=== PATIENT | female | born 1975 ===

== ENCOUNTER → 2021-01-29 | Outpatient (CLI) | payer BC ==
[2021-01-29 09:07] LABS: CHLORIDE 107 mmol/L (98-107); POTASSIUM 4.5 mmol/L (3.5-5.1); SODIUM 140 mmol/L (136-145)
[2021-01-29 09:22] LABS: ALBUMIN 3.9 gm/dl (3.1-4.5); ALKALINE PHOSPHATASE 100 U/L (45-117); BUN 19 mg/dl (7-24); CHOLESTEROL 141 mg/dL (<200); CREATININE 1.05 mg/dL (0.55-1.02); FREE T4 1.02 ng/dl (0.76-1.46); HDL CHOLESTEROL 36 mg/dl (40-60); LDL CHOLESTEROL 86 mg/dL (9-159); SGOT/AST 12 IU/L (3-35); SGPT/ALT 30 U/L (12-78); THYROID STIM HORMONE (HS) 0.395 uIU/ml (0.358-4.75); TOTAL PROTEIN 7.4 gm/dL (6.4-8.2); TRIGLYCERIDES 97 mg/dl (<150); VLDL CHOLESTEROL 19 mg/dL (6-40)
== END | disposition home or self-care (01) ==
LOC: LAB 07:39
PROVIDERS: ATTEND Internal Medicine Endocrinology, Diabetes & Metabolism
DX: E03.9 Hypothyroidism, unspecified (principal); E55.9 Vitamin D deficiency, unspecified; R73.02 Impaired glucose tolerance (oral)

== ENCOUNTER → 2023-06-16 | Outpatient (CLI) | payer BC | END | disposition home or self-care (01) | LOC: US 01:20 | PROVIDERS: ATTEND Family Medicine | DX: N18.31 Chronic kidney disease, stage 3a (principal) ==

== ENCOUNTER → 2025-07-27 | Outpatient (CLI) | payer BC ==
[2025-07-27 15:52] LABS: LDL CHOLESTEROL 161.0 mg/dL (9-159)
== END | disposition home or self-care (01) ==
LOC: LAB 15:03
PROVIDERS: Student in an Organized Health Care Education/Training Program; ATTEND Family Medicine
DX: E78.2 Mixed hyperlipidemia (principal); E55.9 Vitamin D deficiency, unspecified; E03.9 Hypothyroidism, unspecified; Z13.1 Encounter for screening for diabetes mellitus